=== PATIENT | female | born 1965 | race Caucasian/White ===

== ENCOUNTER 2016-08-18 15:31 | Emergency (ER) | payer OTHER ==
[~2016-08-18] VITALS: Ht 160 cm; Wt 82.0 kg
[~2016-08-18 15:31] MED LIST: ALBU1AER INH; ENDO7.5T10 PO; NEXI40CA PO; SIMV40TA PO; TOPI1CAP3
[2016-08-18 15:33] VITALS: BP 169/95; PULSE 84; RESP 15; TEMP 97.8; O2SAT 97
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
[2016-08-18 16:38] VITALS: BP 158/75; PULSE 68; RESP 18; TEMP 99.1; O2SAT 96
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
[2016-08-18] MEDS ORDERED: PERC7.5T13 PO (16:42)
[2016-08-18] MEDS ORDERED: NEXI40CA PO (16:43)
[2016-08-18] MEDS ORDERED: ROBA500T PO (16:43)
[2016-08-18] MEDS ORDERED: ROSU20 PO (16:44)
[2016-08-18] MEDS ORDERED: VENTAER INH ×2 (16:45)
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
== END 2016-08-18 17:51 | disposition home or self-care (01) ==
LOC: NEPD 15:31
DX: S09.90XA Unspecified injury of head, initial encounter (principal); E78.00 Pure hypercholesterolemia, unspecified; F17.200 Nicotine dependence, unspecified, uncomplicated; Z86.59 Personal history of other mental and behavioral disorders; Z87.19 Personal history of other diseases of the digestive system; Z87.39 Personal history of other diseases of the musculoskeletal system and connective tissue; Z86.69 Personal history of other diseases of the nervous system and sense organs; V89.2XXA Person injured in unspecified motor-vehicle accident, traffic, initial encounter
CPT/HCPCS: 70450; 99284